=== PATIENT | female | born 1955 | race Caucasian/White ===

== ENCOUNTER 2024-08-02 07:31 | Day surgery (SDC) | payer MEDICARE ==
[~2024-08-02] VITALS: Ht 162.6 cm; Wt 76.0 kg
[~2024-08-02 07:31] MED LIST: ALBU8.5H; CALC1TAB42 PO; FLUT1BLS6; LEVO150T7 PO; LEVO175T2 PO; LOSA100T46 PO; MIDAZOLAM INJ 2MG/2ML VIAL As Ordered ONE; SIMV40TA20 PO; TIZA2TA PO; fentaNYL 100 MCG/2 ML INJECTION As Ordered ONE
[2024-08-02] MEDS: TROPICAMIDE 1% OPHTH SOLN 15ML OS SCH (08:15)
[2024-08-02] MEDS: CYCLOPENTOLATE 1% OPHTH SOLN 2ML BTL OS SCH (08:15)
[2024-08-02] MEDS: LIDOCAINE 3.5 % 1ML OPHTH TOPICAL GEL OU ONE (08:15)
[2024-08-02] MEDS: OFLOXACIN 0.3 % (OCUFLOX) OPTH SOL 5ML OS ONE (08:15)
[2024-08-02] MEDS: LIDOCAINE 1% SDV 5ML VIAL As Ordered ONE (09:21)
[2024-08-02] MEDS: BSS IRRIG/VANCO(10MG)/TOBRA(5MG)/EPINEPH(1:1000-0.5CC)500ML BAG-ORONLY As Ordered ONE (09:21)
[2024-08-02] MEDS: CEFUROXIME 1MG/0.1ML INTRACAMERAL INJ As Ordered ONE (09:40)
[2024-08-02 09:47] VITALS: BP 181/79; TEMP 97.3; O2SAT 97
== END 2024-08-02 09:59 | disposition home or self-care (01) ==
LOC: M SDC 07:31
PROVIDERS: ATTEND Ophthalmology
DX: H25.12 Age-related nuclear cataract, left eye (principal); E89.0 Postprocedural hypothyroidism; I10 Essential (primary) hypertension; E05.00 Thyrotoxicosis with diffuse goiter without thyrotoxic crisis or storm; E78.00 Pure hypercholesterolemia, unspecified; J45.909 Unspecified asthma, uncomplicated; Z79.899 Other long term (current) drug therapy; Z92.3 Personal history of irradiation; Z79.890 Hormone replacement therapy; K21.9 Gastro-esophageal reflux disease without esophagitis; Z88.8 Allergy status to other drugs, medicaments and biological substances; Z88.6 Allergy status to analgesic agent
CPT/HCPCS: 66984; 92015; J0697; J2250; J3010; V2787

== ENCOUNTER 2025-01-03 08:15 | Day surgery (SDC) | payer MEDICARE ==
[~2025-01-03] VITALS: Ht 160 cm; Wt 71.7 kg
[~2025-01-03 08:15] MED LIST changes: -ALBU8.5H; +ALBU8.5H INH; -FLUT1BLS6; +FLUT1BLS6 INH; -MIDAZOLAM INJ 2MG/2ML VIAL As Ordered ONE; +PHENYLEPHRINE 10% OPHTH SOL 5ML OD PRN; -fentaNYL 100 MCG/2 ML INJECTION As Ordered ONE
[2025-01-03] MEDS: CYCLOPENTOLATE 1% OPHTH SOLN 2ML BTL OD SCH (09:02)
[2025-01-03] MEDS: PHENYLEPHRINE 2.5% OPHTH SOL 2ML OD SCH (09:02)
[2025-01-03] MEDS: OFLOXACIN 0.3 % (OCUFLOX) OPTH SOL 5ML OD ONE (09:02)
[2025-01-03] MEDS: LIDOCAINE 3.5 % 1ML OPHTH TOPICAL GEL OU ONE (09:02)
[2025-01-03] MEDS: TROPICAMIDE 1% OPHTH SOLN 15ML OD SCH (09:03)
[2025-01-03] MEDS ORDERED: fentaNYL 100 MCG/2 ML INJECTION As Ordered ONE (09:14)
[2025-01-03] MEDS ORDERED: MIDAZOLAM INJ 2MG/2ML VIAL As Ordered ONE (09:17)
[2025-01-03] MEDS: BSS IRRIG/VANCO(10MG)/TOBRA(5MG)/EPINEPH(1:1000-0.5CC)500ML BAG-ORONLY As Ordered ONE (09:24)
[2025-01-03] MEDS: LIDOCAINE 1% SDV 5ML VIAL As Ordered ONE (09:24)
[2025-01-03] MEDS: CEFUROXIME 1MG/0.1ML INTRACAMERAL INJ As Ordered ONE (09:24)
[2025-01-03 09:44] VITALS: BP 175/90; TEMP 98; O2SAT 98
== END 2025-01-03 10:02 | disposition home or self-care (01) ==
LOC: M SDC 08:15
PROVIDERS: ATTEND Ophthalmology
DX: H25.11 Age-related nuclear cataract, right eye (principal); I10 Essential (primary) hypertension; E78.5 Hyperlipidemia, unspecified; E05.00 Thyrotoxicosis with diffuse goiter without thyrotoxic crisis or storm; E03.9 Hypothyroidism, unspecified; K44.9 Diaphragmatic hernia without obstruction or gangrene; K21.9 Gastro-esophageal reflux disease without esophagitis; J45.909 Unspecified asthma, uncomplicated; Z88.8 Allergy status to other drugs, medicaments and biological substances; Z79.51 Long term (current) use of inhaled steroids; Z79.899 Other long term (current) drug therapy
CPT/HCPCS: 66984; 92015; J0697; J2250; J3010; V2787